=== PATIENT | male | born 1945 | race American Indian/Alaskan Native ===

== ENCOUNTER 2017-08-01 15:45 | Emergency (ER) | payer MEDICARE ==
--- NOTE | 2017-08-01 16:29 | Emergency Department Report ---
ED General Adult HPI - General Chief complaint: Urogenital-Male Stated complaint: CANT PEE Time Seen by Provider: 08/01/17 16:14 Source: patient Mode of arrival: Ambulatory Limitations: No Limitations - History of Present Illness Initial comments: Patient is a 72-year-old male past medical history of benign prostate hyperplasia who presents with inability to urinate. Patient states that symptoms have been going on for last 3 days. Nothing makes it better or worse. Patient states that he has had this problem before in the past. Patient states that he has mild pain in his belly 4 out 10. Patient denies any nausea or vomiting. - Related Data Home Medications Medication Instructions Recorded Confirmed Last Taken Lisinopril [Zestril TAB] 40 mg PO QDAY 11/17/15 11/17/15 Unknown Previous Rx's Medication Instructions Recorded Last Taken Type Famotidine [Pepcid] 20 mg PO BID #14 tablet 11/18/15 Unknown Rx oxyCODONE /ACETAMINOPHEN [Percocet 1 tab PO Q6H PRN #20 tablet 11/18/15 Unknown Rx 5/325 mg] Allergies Allergy/AdvReac Type Severity Reaction Status Date / Time No Known Allergies Allergy Verified 08/01/17 15:49 ED Review of Systems ROS: Stated complaint: CANT PEE Other details as noted in HPI Constitutional: denies: chills, fever Eyes: denies: eye pain, eye discharge, vision change ENT: denies: ear pain, throat pain Respiratory: denies: cough, shortness of breath, wheezing Cardiovascular: denies: chest pain, palpitations Endocrine: no symptoms reported Gastrointestinal: denies: abdominal pain, nausea, diarrhea Genitourinary: as per HPI. denies: urgency, dysuria Musculoskeletal: denies: back pain, joint swelling, arthralgia Skin: denies: rash, lesions Neurological: denies: headache, weakness, paresthesias Psychiatric: denies: anxiety, depression Hematological/Lymphatic: denies: easy bleeding, easy bruising ED Past Medical Hx - Past Medical History Hx Hypertension: Yes Hx Diabetes: Yes Hx Renal Disease: Yes - Social History Smoking Status: Current Every Day Smoker Substance Use Type: Alcohol - Medications Home Medications: Home Medications Medication Instructions Recorded Confirmed Last Taken Type Lisinopril [Zestril TAB] 40 mg PO QDAY 11/16/11/17/15 Unknown History Famotidine [Pepcid] 20 mg PO BID #14 tablet 11/18/15 Unknown Rx oxyCODONE /ACETAMINOPHEN [Percocet 1 tab PO Q6H PRN #20 tablet 11/18/15 Unknown Rx 5/325 mg] ED Physical Exam - General Limitations: No Limitations General appearance: alert, in no apparent distress - Head Head exam: Present: atraumatic, normocephalic - Eye Eye exam: Present: normal appearance - ENT ENT exam: Present: mucous membranes moist - Neck Neck exam: Present: normal inspection - Respiratory Respiratory exam: Present: normal lung sounds bilaterally. Absent: respiratory distress - Cardiovascular Cardiovascular Exam: Present: regular rate, normal rhythm. Absent: systolic murmur, diastolic murmur, rubs, gallop - GI/Abdominal GI/Abdominal exam: Present: distended, normal bowel sounds, other (distended bladder ) - Rectal Rectal exam: Present: deferred - Extremities Exam Extremities exam: Present: normal inspection - Back Exam Back exam: Present: normal inspection - Neurological Exam Neurological exam: Present: alert, oriented X3 - Psychiatric Psychiatric exam: Present: normal affect, normal mood - Skin Skin exam: Present: warm, dry, intact, normal color. Absent: rash ED Course Vital Signs 08/01/17 15:49 Temperature 98.2 F Pulse Rate 103 H Respiratory 24 Rate Blood Pressure 144/82 O2 Sat by Pulse 100 Oximetry ED Medical Decision Making - Lab Data Result diagrams: 08/01/17 16:29 08/01/17 16:29 Lab Results 08/01/17 08/01/17 Range/Units 16:29 16:29 WBC 11.7 H (4.5-11.0) K/mm3 RBC 4.96 (3.65-5.03) M/mm3 Hgb 15.0 (11.8-15.2) gm/dl Hct 44.0 (35.5-45.6) % MCV 89 (84-94) fl MCH 30 (28-32) pg MCHC 34 (32-34) % RDW 13.4 (13.2-15.2) % Plt Count 286 (140-440) K/mm3 Lymph % (Auto) 9.2 L (13.4-35.0) % [place] % (Auto) 7.2 (0.0-7.3) % Eos % (Auto) 1.1 (0.0-4.3) % Baso % (Auto) 0.7 (0.0-1.8) % Lymph # 1.1 L (1.2-5.4) K/mm3 [place] # 0.8 (0.0-0.8) K/mm3 Eos # 0.1 (0.0-0.4) K/mm3 Baso # 0.1 (0.0-0.1) K/mm3 Seg Neutrophils % 81.8 H (40.0-70.0) % Seg Neutrophils # 9.6 H (1.8-7.7) K/mm3 Sodium 131 L (137-145) mmol/L Potassium 4.2 (3.6-5.0) mmol/L Chloride 93.7 L (98-107) mmol/L Carbon Dioxide 24 (22-30) mmol/L Anion Gap 18 mmol/L BUN 17 (9-20) mg/dL Creatinine 1.5 (0.8-1.5) mg/dL Estimated GFR 56 ml/min BUN/Creatinine Ratio 11 % Glucose 137 H (75-100) mg/dL Calcium 9.8 (8.4-10.2) mg/dL - Medical Decision Making Cdx: Urinary obstruction 2/2 BPH ddx: Acute kidney failure, Constipation, Bladder Calculi I will get cbc, bmp boyer catheter. I was able to get 1300 mls of urine after boyer was placed. Blood work is unremarkable I will send patient home with boyer leg bag and f/u with Urology. Discussed plan with patient and patient agrees with plan. Additional verbal discharge instructions were given. Critical care attestation.: If time is entered above; I have spent that time in minutes in the direct care of this critically ill patient, excluding procedure time. ED Disposition Clinical Impression: Bladder distension, Urinary retention due to benign prostatic hyperplasia Disposition: DC- TO HOME OR SELFCARE Is pt being admited?: No Does the pt Need Aspirin: No Condition: Stable Instructions: Urinary Retention in Men (ED) Referrals: FELICIA REYES MD [Staff Physician] - 3-5 Days
[2017-08-01 16:47] LABS: Basophils # (Auto) 0.1 K/mm3 (0.0-0.1); Basophils % (Auto) 0.7 % (0.0-1.8); Eosinophils # (Auto) 0.1 K/mm3 (0.0-0.4); Eosinophils % (Auto) 1.1 % (0.0-4.3); Lymphocytes # (Auto) 1.1 K/mm3 (1.2-5.4); Lymphocytes % (Auto) 9.2 % (13.4-35.0); Mean Corpuscular HGB Conc 34 % (32-34); Mean Corpuscular Hemoglobin 30 pg (28-32); Mean Corpuscular Volume 89 fl (84-94); Monocytes # (Auto) 0.8 K/mm3 (0.0-0.8); Monocytes % (Auto) 7.2 % (0.0-7.3); Platelet Count 286 K/mm3 (140-440); Red Blood Count 4.96 M/mm3 (3.65-5.03); Red Cell Distribution Width 13.4 % (13.2-15.2)
[2017-08-01 16:53] LABS: Calcium 9.8 mg/dL (8.4-10.2)
[2017-08-01 19:27] VITALS: BP 167/84
== END 2017-08-01 19:40 | disposition home or self-care (01) ==
LOC: ED 15:45
DX: N40.1 Benign prostatic hyperplasia with lower urinary tract symptoms (principal); R33.8 Other retention of urine; N32.89 Other specified disorders of bladder; I10 Essential (primary) hypertension; E11.9 Type 2 diabetes mellitus without complications; F17.200 Nicotine dependence, unspecified, uncomplicated
CPT/HCPCS: 36415; 51702; 80048; 85025

== ENCOUNTER 2017-08-06 14:08 | Emergency (ER) | payer MEDICARE ==
[2017-08-06 15:53] LABS: Basophils # (Auto) 0.1 K/mm3 (0.0-0.1); Eosinophils # (Auto) 0.2 K/mm3 (0.0-0.4); Eosinophils % (Auto) 2.7 % (0.0-4.3); Hematocrit 45.2 % (35.5-45.6); Hemoglobin 14.7 gm/dl (11.8-15.2); Lymphocytes % (Auto) 26.8 % (13.4-35.0); Mean Corpuscular HGB Conc 33 % (32-34); Mean Corpuscular Hemoglobin 30 pg (28-32); Mean Corpuscular Volume 92 fl (84-94); Monocytes # (Auto) 0.4 K/mm3 (0.0-0.8); Platelet Count 317 K/mm3 (140-440); Red Blood Count 4.95 M/mm3 (3.65-5.03); Red Cell Distribution Width 13.5 % (13.2-15.2)
[2017-08-06] MEDS ORDERED: NORCO 5/325 PO ONE (15:53)
[2017-08-06] MEDS ORDERED: BACTRIM DS PO ONE (15:54)
[2017-08-06] MEDS ORDERED: KEFLEX PO ONE (15:54)
--- NOTE | 2017-08-06 15:57 | Emergency Department Report ---
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 Patient states that he is not circumcised. Denies nausea vomiting fever or chills. Patient states that his [place] bag is draining and was last changed 3 days ago. He states he has a urology appointment tomorrow. Patient is awake alert and oriented 3 MD Complaint: other (penile pain) - Related Data Home Medications Medication Instructions Recorded Confirmed Last Taken Lisinopril [Zestril TAB] 40 mg PO QDAY 11/17/15 11/17/15 Unknown Previous Rx's Medication Instructions Recorded Last Taken Type Famotidine [Pepcid] 20 mg PO BID #14 tablet 11/18/15 Unknown Rx oxyCODONE /ACETAMINOPHEN [Percocet 1 tab PO Q6H PRN #20 tablet 11/18/15 Unknown Rx 5/325 mg] Cephalexin [Keflex] 500 mg PO Q12HR #14 cap 08/06/17 Unknown Rx HYDROcodone/APAP 5-325 [[place] 1 each PO Q6HR PRN #12 tablet 08/06/17 Unknown Rx 5/325] Sulfamethoxazole/Trimethoprim 1 each PO BID #14 tablet 08/06/17 Unknown Rx [Bactrim DS TAB] Allergies Allergy/AdvReac Type Severity Reaction Status Date / Time No Known Allergies Allergy Verified 08/01/17 15:49 ED Review of Systems ROS: Stated complaint: URINARY PROBLEMS Other details as noted in HPI Constitutional: denies: chills, fever Eyes: denies: eye pain, eye discharge, vision change ENT: denies: ear pain, throat pain Respiratory: denies: cough, shortness of breath, wheezing Cardiovascular: denies: chest pain, palpitations Endocrine: no symptoms reported Gastrointestinal: denies: abdominal pain, nausea, diarrhea Genitourinary: as per HPI (indwellign catheter, penile swelling). denies: dysuria Musculoskeletal: denies: back pain, joint swelling, arthralgia Skin: denies: rash, lesions Neurological: denies: headache, weakness, paresthesias Psychiatric: denies: anxiety, depression Hematological/Lymphatic: denies: easy bleeding, easy bruising ED Past Medical Hx - Past Medical History Hx Hypertension: Yes Hx Diabetes: Yes Hx Renal Disease: Yes - Social History Smoking Status: Never Smoker Substance Use Type: None - Medications Home Medications: Home Medications Medication Instructions Recorded Confirmed Last Taken Type Lisinopril [Zestril TAB] 40 mg PO QDAY 11/17/15 11/17/15 Unknown History Famotidine [Pepcid] 20 mg PO BID #14 tablet 11/18/15 Unknown Rx oxyCODONE /ACETAMINOPHEN [Percocet 1 tab PO Q6H PRN #20 tablet 11/18/15 Unknown Rx 5/325 mg] Cephalexin [Keflex] 500 mg PO Q12HR #14 cap 08/06/17 Unknown Rx HYDROcodone/APAP 5-325 [[place] 1 each PO Q6HR PRN #12 tablet 08/06/17 Unknown Rx 5/325] Sulfamethoxazole/Trimethoprim 1 each PO BID #14 tablet 08/06/17 Unknown Rx [Bactrim DS TAB] ED Physical Exam - General Limitations: No Limitations General appearance: alert, in no apparent distress - Head Head exam: Present: atraumatic, normocephalic - Eye Eye exam: Present: normal appearance - ENT ENT exam: Present: mucous membranes moist - Neck Neck exam: Present: normal inspection - Respiratory Respiratory exam: Present: normal lung sounds bilaterally. Absent: respiratory distress - Cardiovascular Cardiovascular Exam: Present: regular rate, normal rhythm. Absent: systolic murmur, diastolic murmur, rubs, gallop - GI/Abdominal GI/Abdominal exam: Present: soft, normal bowel sounds - Rectal Rectal exam: Present: deferred - Expanded Exam Expanded Male exam: Present: paraphimosis (penile shaft swelling, NON circumferential as pt Dr. Mascorro who also examnied pt) - Extremities Exam Extremities exam: Present: normal inspection - Back Exam Back exam: Present: normal inspection - Neurological Exam Neurological exam: Present: alert, oriented X3 - Psychiatric Psychiatric exam: Present: normal affect, normal mood - Skin Skin exam: Present: warm, dry, intact, normal color. Absent: rash ED Course Vital Signs 08/06/17 14:15 Temperature 98.7 F Pulse Rate 93 H Respiratory 18 Rate Blood Pressure 152/76 O2 Sat by Pulse 98 Oximetry ED Medical Decision Making - Lab Data Result diagrams: 08/06/17 15:36 08/06/17 15:36 - Medical Decision Making A/P: Penile shaft cellulitis 1-as per Dr. Mascorro thoroughly examined the patient this is not paraphimosis and not a urologic emergency. Swelling is non-circumferential and distal penile shaft has good capillary refill as per Dr. Mascorro 2-patient has follow-up with a urologist tomorrow I advised him to discuss this with his urologist 3-Bactrim and Keflex twice a day for 7 days to cover for penile cellulitis. I advised patient to return to the ED for fever chills nausea vomiting or worsening cellulitis 4- Critical care attestation.: If time is entered above; I have spent that time in minutes in the direct care of this critically ill patient, excluding procedure time. ED Disposition Clinical Impression: Cellulitis of shaft of penis Disposition: DC- TO HOME OR SELFCARE Is pt being admited?: No Does the pt Need Aspirin: No Condition: Stable Instructions: Cellulitis (ED) Prescriptions: Cephalexin [Keflex] 500 mg PO Q12HR #14 cap HYDROcodone/APAP 5-325 [[place] 5/325] 1 each PO Q6HR PRN #12 tablet PRN Reason: Pain Sulfamethoxazole/Trimethoprim [Bactrim DS TAB] 1 each PO BID #14 tablet Referrals: TEA CONRADYANITHA [Provider Group] - 3-5 Days Time of Disposition: 17:44
--- NOTE | 2017-08-06 16:06 | Emergency Department Report ---
Chief Complaint: Urogenital-Male Stated Complaint: URINARY PROBLEMS Time Seen by Provider: 08/06/17 15:30 - HPI History of Present Illness: The patient is a 72-year-old male who presents for evaluation of penile shaft swelling. The patient reports nausea and swelling since yesterday, unilateral, constant, associated with swelling and moderate to severe throbbing pain. He shares that [place] catheter was placed last week for treatment of urinary retention. The patient denies open wound to the penis, testicular swelling or pain, drainage or discharge from the penis, or malfunctioning [place] catheter. - Exam Vital Signs: Vital Signs 08/06/17 14:15 Temperature 98.7 F Pulse Rate 93 H Respiratory 18 Rate Blood Pressure 152/76 O2 Sat by Pulse 98 Oximetry MSE screening note: Focused history and physical exam performed. Due to findings the following was ordered: ED Medical Decision Making - Lab Data Result diagrams: 08/06/17 15:36 ED Disposition for MSE Condition: Stable
[2017-08-06 16:09] LABS: Alanine Aminotransferase 46 units/L (7-56); Albumin 3.7 g/dL (3.9-5); BUN/Creatinine Ratio 10; Blood Urea Nitrogen 12 mg/dL (9-20); Calcium 9.1 mg/dL (8.4-10.2); Hemolysis Index 11
[2017-08-06 17:47] LABS: Bacteria,Urine 1+ /HPF (Negative); Bilirubin,Urine NEG (Negative); Blood,Urine LG (Negative); Color,Urine Yellow (Yellow); Mucus,Urine FEW /HPF; Urobilinogen,Urine < 2.0 mg/dL (<2.0)
[2017-08-06 18:01] VITALS: BP 152/87
== END 2017-08-06 19:12 | disposition home or self-care (01) ==
LOC: ED 14:08
DX: N48.22 Cellulitis of corpus cavernosum and penis (principal); I10 Essential (primary) hypertension; E11.9 Type 2 diabetes mellitus without complications
CPT/HCPCS: 36415; 80053; 81001; 85025

== ENCOUNTER 2018-07-09 09:51 | Outpatient (CLI) | payer MEDICARE ==
--- NOTE | 2018-07-09 23:27 | Magnetic Resonance Report ---
FINAL REPORT PROCEDURE: MR LUMBAR SPINE WO CON TECHNIQUE: Magnetic resonance imaging of the lumbar spine was performed using standard pulse [employer] es without contrast material. CPT 58590 HISTORY: PAINinpatient COMPARISON: No prior studies are available for comparison. FINDINGS: For the purposes of this examination the inferior-most well developed disc has been labeled as L5-S1. Vertebral alignment and height are within normal limits with normal bone marrow signal. Conus medulla ris is normal in location and appearance. Pre and paravertebral soft tissues are within normal limits . 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 L1-2: No significant abnormality . L2-3: No significant abnormality . L3-4: There is mild degree left neural foraminal stenosis secondary to mild degree left lateral disc protrusion.. L4-5: Mild degree disc bulge is identified without significant spinal canal compromise. There is mode rate degree bilateral facet and ligamentous hypertrophy resulting in minimal degree bilateral neural foraminal stenosis. L5-S1: [id number] degree disc bulge is noted eccentric to the right resulting in mild degree ri ght lateral recess and right neural foraminal stenosis. There is also moderate degree left facet arth ropathy. Other: None . IMPRESSION: Multilevel lumbar spondylosis as described above.
== END 2018-07-09 09:52 | disposition home or self-care (01) ==
LOC: MRI 09:51
PROVIDERS: ATTEND Physical Medicine & Rehabilitation Pain Medicine
DX: M47.816 Spondylosis without myelopathy or radiculopathy, lumbar region (principal); M51.26 Other intervertebral disc displacement, lumbar region; M51.27 Other intervertebral disc displacement, lumbosacral region; I10 Essential (primary) hypertension
CPT/HCPCS: 72148

== ENCOUNTER 2020-10-19 15:10 | Emergency (ER) | payer MEDICARE ==
--- NOTE | 2020-10-19 17:34 | Event Note ---
ED Screening Note Date of service: 10/19/20 Time: 17:33 ED Screening Note: This is a 75-year-old male with a history of diabetes who presents to ED complaining of abdominal and chest pain x4 days. Patient states he worsened this morning so he presented here. Denies nausea vomiting but admits diarrhea. This initial assessment/diagnostic orders/clinical plan/treatment(s) is/are subject to change based on patients health status, clinical progression and re- assessment by fellow clinical providers in the ED. Further treatment and workup at subsequent clinical providers discretion. Patient/guardian urged not to elope from the ED as their condition may be serious if not clinically assessed and managed. Initial orders include: labs, ekg, ua
[2020-10-19 18:05] LABS: Basophils # (Auto) 0.1 K/mm3 (0.0-0.1); Eosinophils % (Auto) 0.5 % (0.0-4.3); Hematocrit 46.5 % (35.5-45.6); Hemoglobin 15.8 gm/dl (11.8-15.2); Lymphocytes # (Auto) 1.1 K/mm3 (1.2-5.4); Lymphocytes % (Auto) 15.8 % (13.4-35.0); Mean Corpuscular HGB Conc 34 % (32-34); Mean Corpuscular Volume 90 fl (84-94); Monocytes # (Auto) 0.3 K/mm3 (0.0-0.8); Monocytes % (Auto) 3.7 % (0.0-7.3); Platelet Count 291 K/mm3 (140-440); Red Blood Count 5.19 M/mm3 (3.65-5.03); Red Cell Distribution Width 13.9 % (13.2-15.2)
[2020-10-19 18:44] LABS: BUN/Creatinine Ratio 9; Blood Urea Nitrogen 10 mg/dL (9-20); Calcium 9.8 mg/dL (8.4-10.2)
[2020-10-19 18:45] LABS: Alanine Aminotransferase 10 units/L (7-56); Albumin 4.6 g/dL (3.9-5); Hemolysis Index 10
--- NOTE | 2020-10-19 18:47 | Cat Scan Report ---
CT ABDOMEN AND PELVIS WITHOUT CONTRAST HISTORY: MAIN. COMPARISON: None. TECHNIQUE: CT images of the abdomen and pelvis were obtained without administration of intravenous co ntrast. All CT scans at this location are performed using CT dose reduction for ALARA by means of au tomated exposure control. FINDINGS: Lungs/bones: Lung bases are clear Abdomen/pelvis: Within limits of a noncontrast examination the liver, spleen, adrenal glands and urbano creas appear normal. Hypertrophy and hypodense cyst is seen in bilateral kidneys no obstructing stone is identified. There is no bowel obstruction. Urinary bladder is mildly distended. No ureteral stone is seen. Atherosclerotic changes seen throughout the aorta. Prostate is slightly enlarged. Degenerat mary changes seen throughout spine. IMPRESSION: 1. No renal or ureteral stones. Hypoechoic hyperdense cyst in bilateral kidneys. 2. No CT evidence for appendicitis. Examination is limited without IV and oral contrast. No free flui d is identified. No bowel obstruction. Signer Name: Foreign Carlson MD Signed: 10/19/2020 6:43 PM Workstation Name: [id number]
[2020-10-19] MEDS ORDERED: MORPHINE 4 MG/1 ML INJ IV ONE (21:44)
[2020-10-19 22:03] LABS: Bilirubin,Urine NEG (Negative); Blood,Urine NEG (Negative); Color,Urine Straw (Yellow); Protein,Urine <15 mg/dL mg/dL (Negative); Urobilinogen,Urine < 2.0 mg/dL (<2.0)
--- NOTE | 2020-10-19 22:27 | Emergency Department Report ---
ED General Adult HPI - General Chief complaint: Abdominal Pain Stated complaint: ABDOMINAL PAIN/CONSTIPATION Time Seen by Provider: 10/19/20 21:02 Source: patient, EMS Mode of arrival: Wheelchair Limitations: Physical Limitation - History of Present Illness Initial comments: Marshal Saxena is a 75-year-old male who presents with lower abdominal pain patie nt states that he has been taking oxycodone for his back and he has been straining to have a bowel movement. Patient states that his abdominal pain is a 6 out of 10 he states that he has been straining to have bowel movements and that his last bowel movement has been in 3 days. Patient denies any nausea vomiting or diarrhea. He states his pain is moderate no fevers or chills. Severity scale (0 -10): 8 - Related Data Home Medications Medication Instructions Recorded Confirmed Last Taken lisinopriL [Zestril TAB] 40 mg PO QDAY 11/17/15 11/17/15 Unknown Previous Rx's Medication Instructions Recorded Last Taken Type Famotidine [Pepcid] 20 mg PO BID #14 tablet 11/18/15 Unknown Rx oxyCODONE /ACETAMINOPHEN [Percocet 1 tab PO Q6H PRN #20 tablet 11/18/15 Unknown Rx 5/325 mg] HYDROcodone/APAP 5-325 [[place] 1 each PO Q6HR PRN #12 tablet 08/06/17 Unknown Rx 5/325] Sulfamethoxazole/Trimethoprim 1 each PO BID #14 tablet 08/06/17 Unknown Rx [Bactrim DS TAB] cephALEXin [Keflex] 500 mg PO Q12HR #14 cap 08/06/17 Unknown Rx Magnesium Citrate [Citroma] 296 ml PO ONCE #1 solution 10/19/20 Unknown Rx Allergies Allergy/AdvReac Type Severity Reaction Status Date / Time No Known Allergies Allergy Verified 08/01/17 15:49 ED Review of Systems ROS: Stated complaint: ABDOMINAL PAIN/CONSTIPATION Other details as noted in HPI Constitutional: denies: chills, fever Eyes: denies: eye pain, eye discharge, vision change ENT: denies: ear pain, throat pain Respiratory: denies: cough, shortness of breath, wheezing Cardiovascular: denies: chest pain, palpitations Endocrine: no symptoms reported Gastrointestinal: abdominal pain, constipation. denies: nausea, diarrhea Genitourinary: denies: urgency, dysuria Musculoskeletal: denies: back pain, joint swelling, arthralgia Skin: denies: rash, lesions Neurological: denies: headache, weakness, paresthesias Psychiatric: denies: anxiety, depression Hematological/Lymphatic: denies: easy bleeding, easy bruising ED Past Medical Hx - Past Medical History Previous Medical History?: Yes Hx Hypertension: Yes Hx Diabetes: Yes Hx Renal Disease: Yes - Social History Smoking Status: Never Smoker Substance Use Type: None - Medications Home Medications: Home Medications Medication Instructions Recorded Confirmed Last Taken Type lisinopriL [Zestril TAB] 40 mg PO QDAY 11/17/15 11/17/15 Unknown History Famotidine [Pepcid] 20 mg PO BID #14 tablet 11/18/15 Unknown Rx oxyCODONE /ACETAMINOPHEN [Percocet 1 tab PO Q6H PRN #20 tablet 11/18/15 Unknown Rx 5/325 mg] HYDROcodone/APAP 5-325 [[place] 1 each PO Q6HR PRN #12 tablet 08/06/17 Unknown Rx 5/325] Sulfamethoxazole/Trimethoprim 1 each PO BID #14 tablet 08/06/17 Unknown Rx [Bactrim DS TAB] cephALEXin [Keflex] 500 mg PO Q12HR #14 cap 08/06/17 Unknown Rx Magnesium Citrate [Citroma] 296 ml PO ONCE #1 solution 10/19/20 Unknown Rx ED Physical Exam - General Limitations: Physical Limitation General appearance: alert, in no apparent distress - Head Head exam: Present: atraumatic, normocephalic - Eye Eye exam: Present: normal appearance - ENT ENT exam: Present: mucous membranes moist - Neck Neck exam: Present: normal inspection - Respiratory Respiratory exam: Present: normal lung sounds bilaterally. Absent: respiratory distress - Cardiovascular Cardiovascular Exam: Present: regular rate, normal rhythm. Absent: systolic murmur, diastolic murmur, rubs, gallop - GI/Abdominal GI/Abdominal exam: Present: soft, normal bowel sounds - Rectal Rectal exam: Present: deferred - Extremities Exam Extremities exam: Present: normal inspection - Back Exam Back exam: Present: normal inspection - Neurological Exam Neurological exam: Present: alert, oriented X3 - Psychiatric Psychiatric exam: Present: normal affect, normal mood - Skin Skin exam: Present: warm, dry, intact, normal color. Absent: rash ED Course Vital Signs 10/19/20 10/19/20 16:34 21:07 Temperature 99.5 F Pulse Rate 118 H 90 Respiratory 18 20 Rate Blood Pressure 114/60 152/73 [Right] O2 Sat by Pulse 99 100 Oximetry ED Medical Decision Making - Lab Data Result diagrams: 10/19/20 17:52 10/19/20 17:52 Lab Results 10/19/20 10/19/20 10/19/20 Range/Units 17:52 17:52 21:53 WBC 7.1 (4.5-11.0) K/mm3 RBC 5.19 H (3.65-5.03) M/mm3 Hgb 15.8 H (11.8-15.2) gm/dl Hct 46.5 H (35.5-45.6) % MCV 90 (84-94) fl MCH 30 (28-32) pg MCHC 34 (32-34) % RDW 13.9 (13.2-15.2) % Plt Count 291 (140-440) K/mm3 Lymph % (Auto) 15.8 (13.4-35.0) % [place] % (Auto) 3.7 (0.0-7.3) % Eos % (Auto) 0.5 (0.0-4.3) % Baso % (Auto) 1.0 (0.0-1.8) % Lymph # (Auto) 1.1 L (1.2-5.4) K/mm3 [place] # (Auto) 0.3 (0.0-0.8) K/mm3 Eos # (Auto) 0.0 (0.0-0.4) K/mm3 Baso # (Auto) 0.1 (0.0-0.1) K/mm3 Seg Neutrophils % 79.0 H (40.0-70.0) % Seg Neutrophils # 5.6 (1.8-7.7) K/mm3 Sodium 136 L (137-145) mmol/L Potassium 4.5 (3.6-5.0) mmol/L Chloride 98.9 (98-107) mmol/L Carbon Dioxide 20 L (22-30) mmol/L Anion Gap 22 mmol/L BUN 10 (9-20) mg/dL Creatinine 1.1 (0.8-1.3) mg/dL Estimated GFR > 60 ml/min BUN/Creatinine Ratio 9 % Glucose 162 H (75-100) mg/dL Calcium 9.8 (8.4-10.2) mg/dL Total Bilirubin 0.50 (0.1-1.2) mg/dL AST 12 (5-40) units/L ALT 10 (7-56) units/L Alkaline Phosphatase 156 H (35-129) units/L Total Protein 7.6 (6.3-8.2) g/dL Albumin 4.6 (3.9-5) g/dL Albumin/Globulin Ratio 1.5 % Urine Color Straw (Yellow) Urine Turbidity Clear (Clear) Urine pH 6.0 (5.0-7.0) Ur Specific [place] 1.007 (1.003-1.030) Urine Protein <15 mg/dl (Negative) mg/dL Urine Glucose (UA) >=500 (Negative) mg/dL Urine Ketones Neg (Negative) mg/dL Urine Blood Neg (Negative) Urine Nitrite Neg (Negative) Urine Bilirubin Neg (Negative) Urine Urobilinogen < 2.0 (<2.0) mg/dL Ur Leukocyte Esterase Neg (Negative) Urine WBC (Auto) 1.0 (0.0-6.0) /HPF Urine RBC (Auto) 1.0 (0.0-6.0) /HPF U Epithel Cells (Auto) < 1.0 (0-13.0) /HPF - Radiology Data Radiology results: report reviewed, image reviewed CT scan: Shows no obstruction no appendicitis no ureteral stone. - Medical Decision Making Cdx: Constipation ddx: SBO, LBO I will get ct scan, blood work iv pain medication and will re-eval. Patient CT scan is unremarkable I will discharge patient home with magnesium citrate discussed with patient plan with patient patient agrees with plan Critical care attestation.: If time is entered above; I have spent that time in minutes in the direct care of this critically ill patient, excluding procedure time. ED Disposition Clinical Impression: Abdominal pain Qualifiers: Abdominal location: generalized Qualified Code(s): R10.84 - Generalized abdominal pain Constipation Qualifiers: Constipation type: unspecified constipation type Qualified Code(s): K59.00 - Constipation, unspecified Disposition: - TO HOME OR SELFCARE Is pt being admited?: No Does the pt Need Aspirin: No Condition: Stable Instructions: Constipation, Adult, Abdominal Pain, Adult, [id number] Prescriptions: Magnesium Citrate [Citroma] 296 ml PO ONCE #1 solution
[2020-10-19] MEDS ORDERED: MAGNESIUM CITRATE 300 ML ORAL LIQD PO ONE (22:28)
[2020-10-19 23:24] VITALS: BP 141/95
--- NOTE | 2020-10-20 14:44 | Electrocardiograph Report ---
[facility] Test Date: 2020-10-19 Test Time: 16:40:13 Pat Name: LAWRENCE MALDONADO III Department: Room: Gender: M Belt Maker: KENDY : 1945 Requested By: NAZ YOUNG Order Number: [id number] Reading MD: Edward Saravia Measurements Intervals [place] Rate: 117 P: 49 TX: 151 QRS: 31 QRSD: 83 T: 180 QT: 311 QTc: 435 Interpretive Statements Sinus tachycardia Abnormal T, consider ischemia, lateral leads No previous ECG available for comparison Electronically Signed On 10-20-2020 14:43:56 EDT by Edward Saravia
== END 2020-10-19 23:25 | disposition home or self-care (01) ==
LOC: ED 15:10
DX: K59.00 Constipation, unspecified (principal); R10.30 Lower abdominal pain, unspecified; I10 Essential (primary) hypertension; E11.9 Type 2 diabetes mellitus without complications; Z79.899 Other long term (current) drug therapy
CPT/HCPCS: 36415; 74176; 80053; 81001; 85025; 93005; 96374; 99284; J2270

== ENCOUNTER 2021-02-22 08:14 | Day surgery (SDC) | payer MEDICARE ==
[2021-02-22] MEDS ORDERED: ASPIRIN EC 325 MG TAB PO ONE (08:36)
[2021-02-22] MEDS ORDERED: SODIUM CHLORIDE 0.9% 500 ML 500 ML IV SCH (09:00)
[2021-02-22 09:09] LABS: Basophils # (Auto) 0.1 K/mm3 (0.0-0.1); Basophils % (Auto) 1.3 % (0.0-1.8); Eosinophils # (Auto) 0.2 K/mm3 (0.0-0.4); Eosinophils % (Auto) 4.2 % (0.0-4.3); Hematocrit 46.6 % (35.5-45.6); Hemoglobin 16.1 gm/dl (11.8-15.2); Lymphocytes # (Auto) 1.1 K/mm3 (1.2-5.4); Lymphocytes % (Auto) 20.9 % (13.4-35.0); Mean Corpuscular HGB Conc 34 % (32-34); Mean Corpuscular Volume 91 fl (84-94); Monocytes # (Auto) 0.3 K/mm3 (0.0-0.8); Monocytes % (Auto) 5.6 % (0.0-7.3); Platelet Count 256 K/mm3 (140-440); Red Blood Count 5.14 M/mm3 (3.65-5.03); Red Cell Distribution Width 13.8 % (13.2-15.2)
[2021-02-22 09:20] LABS: INR 0.83 (0.87-1.13)
[2021-02-22 09:26] LABS: BUN/Creatinine Ratio 18; Blood Urea Nitrogen 14 mg/dL (9-20); Calcium 9.8 mg/dL (8.4-10.2); Hemolysis Index 100
[2021-02-22] MEDS ORDERED: HEPARIN 10,000 UNITS/10 ML VIAL ONE (10:19)
[2021-02-22] MEDS ORDERED: HEPARIN/NS 5000 UNIT/500ML 1,000 ML IR ONE (10:19)
[2021-02-22] MEDS ORDERED: VERAPAMIL 5 MG/2 ML INJ ONE (10:19)
[2021-02-22] MEDS ORDERED: NITROGLYCERIN SYRINGE 0 ML ONE (10:19)
[2021-02-22] MEDS: MIDAZOLAM 2 MG/2 ML INJ ONE ×2 (10:36→10:44)
[2021-02-22] MEDS: fentaNYL 100 MCG/2 ML INJ ONE ×2 (10:36→10:44)
[2021-02-22] MEDS: LIDOCAINE (2%) 20 MG/1 ML VIAL 20 ML MDV INFILTRATI ONE ×2 (10:37→10:45)
--- NOTE | 2021-02-22 11:38 | Discharge Summary ---
Short Stay Discharge Plan Activity: advance as tolerated Weight Bearing Status: Partial Weight Bearing Diet: low fat, low cholesterol, low salt, diabetic Wound: keep clean and dry Special Instructions: no heavy lifting (3 days) Follow up with: JHOAN JIMENEZ III, APRN-MARY [Primary Care Provider] - 7 Days TERENCE TUCKER MD [Staff Physician] - 7 Days
--- NOTE | 2021-02-22 13:48 | Cardiac Catherization Report ---
DATE OF SERVICE: 02/22/2021 REASON FOR PROCEDURE: The patient is a 76-year-old man with shortness of breath, who was found on echocardiogram with a mild transaortic gradient, and referred for right and left heart catheterization for further evaluation of persistent shortness of breath and mild aortic stenosis. PROCEDURES: 1. Right heart catheterization. 2. Left heart catheterization. 3. Selective left and right coronary angiography. 4. Left ventricular angiography. 5. Sedation time start 10:44, end 11:01. DESCRIPTION OF PROCEDURE: The patient was prepped and draped in a sterile fashion after informed consent. The right femoral artery and vein were both entered using Seldinger technique. A 6-[place] sheath was inserted in the artery and an 8-[place] sheath in the vein. [place] catheter was then advanced to the pulmonary artery position. Cardiac output was measured using thermodilution method. A #4 right Sharona catheter was then inserted and advanced into the left ventricle. Simultaneous right and left heart filling pressures were measured. The [place] catheter was then withdrawn and right heart pressures were measured on pullback. Left ventricular angiography was then done using hand injection with the right Sharona catheter. Following this, the catheter was withdrawn across the aortic valve and transaortic pressure gradient was assessed. Finally, selective left and right coronary angiography was performed using the #4 right Sharona and #4 left Sharona. The catheters were then removed, sheath removed and hemostasis achieved over the arterial site using an Angio-Seal device, and over the venous site using manual compression. The patient was returned to the postprocedure unit in stable condition. There were no complications. HEMODYNAMICS: Mean right atrial was 15. Right ventricular pressure was 45- 50/18. Pulmonary artery pressure was 35-40/20. The mean pulmonary artery wedge pressure was 20. Left ventricular end-diastolic pressure was 20. Ascending aortic pressure 163/71. There was no significant pressure gradient on pullback across the aortic valve. Cardiac output was 6.12 liters per minute. CORONARY ANGIOGRAPHY: Left main coronary artery was free of significant disease. Left anterior descending artery and its diagonal branches contained mild luminal irregularities. The circumflex artery and its obtuse marginal branches contained mild luminal irregularities. The right coronary artery was dominant and contained mild luminal irregularities. Left ventricular systolic function was normal with ejection fraction 55-60%. CONCLUSION: 1. Mild to moderate increase in right and left heart filling pressures. 2. Moderate pulmonary hypertension with pulmonary artery systolic pressure of 50 mmHg. 3. Mild trans-pulmonic valve gradient of uncertain significance. 4. No significant coronary disease as detailed above. 5. Normal LV systolic function, EF 55-60%. TID: [id number] RECEIPT: [id number] [facility]
[2021-02-22 14:40] VITALS: BP 164/84
--- NOTE | 2021-02-28 14:11 | Electrocardiograph Report ---
[facility] Test Date: 2021-02-22 Test Time: 09:32:22 Pat Name: LAWRENCE MALDONADO III Department: Room: Gender: M Systems Architect: TIANNA : 1945 Requested By: EDWARD TUCKER Order Number: [id number] Reading MD: Edward Tucker Measurements Intervals [place] Rate: 64 P: 48 IA: 162 QRS: 11 QRSD: 94 T: QT: 382 QTc: 394 Interpretive Statements Marked sinus arrhythmia Nonspecific T wave abnormality Compared to ECG 10/19/2020 16:40:13 Sinus arrhythmia has replaced sinus tachycardia Electronically Signed On 02-28-2021 14:10:33 EDT by Edward Tucker
== END 2021-02-22 15:20 | disposition home or self-care (01) ==
LOC: CATHLABREC 08:14
PROVIDERS: ATTEND Internal Medicine Cardiovascular Disease
DX: R94.30 Abnormal result of cardiovascular function study, unspecified (principal); R55 Syncope and collapse; I12.9 Hypertensive chronic kidney disease with stage 1 through stage 4 chronic kidney disease, or unspecified chronic kidney disease; N18.9 Chronic kidney disease, unspecified; E78.00 Pure hypercholesterolemia, unspecified; F17.210 Nicotine dependence, cigarettes, uncomplicated; Z79.899 Other long term (current) drug therapy; Z98.890 Other specified postprocedural states
CPT/HCPCS: 36415; 80048; 85025; 85610; 93005; 93460; 99156; C1760; C1894; J1644; J2250; J3010; J7040; Q9967

== ENCOUNTER 2021-10-04 15:41 | Emergency (ER) | payer MEDICARE ==
[2021-10-04 15:50] VITALS: BP 93/55
[2021-10-04] MEDS ORDERED: SODIUM CHLORIDE 0.9% 1000 ML 1,000 ML IV ONE (16:12)
--- NOTE | 2021-10-04 16:12 | Emergency Department Report ---
ED General Adult HPI - General Chief complaint: Weakness Stated complaint: WEAKNESS Time Seen by Provider: 10/04/21 15:58 Source: patient, EMS Mode of arrival: Stretcher Limitations: No Limitations - History of Present Illness Initial comments: The patient presents to the emergency department via EMS for chief complaint of generalized weakness. Per EMS the patient walked to the store and upon returning to his apartment was noticed by bystanders that he was very diaphoretic and upon EMS arrival the patient's blood pressure was 180/102. Patient denies chest pain or shortness of breath. Patient states he has a history of hypertension diabetes. Patient states that after walking to the store and back to his apartment and he just felt weak. He states now he feels back to his normal self. -: Sudden Severity scale (0 -10): 0 Consistency: now resolved Improves with: none Worsens with: none Associated Symptoms: denies other symptoms Treatments Prior to Arrival: none - Related Data Home Medications Medication Instructions Recorded Confirmed Last Taken lisinopriL [Zestril TAB] 20 mg PO QDAY 11/17/15 02/22/21 02/21/21 Aspirin [Vazalore] 81 mg PO DAILY 02/22/21 02/22/21 02/21/21 AtorvaSTATin [Lipitor] 40 mg PO QHS 02/22/21 02/22/21 02/21/21 Empagliflozin/Metformin HCl 1 each PO DAILY 02/22/21 02/22/21 02/20/21 [Synjardy 5-1,000 mg Tablet] Gabapentin [Neurontin] 800 mg PO DAILY 02/22/21 02/22/21 02/21/21 Insulin Aspart (Nf) [NovoLOG 16 unit SQ TID 02/22/21 02/22/21 02/21/21 Flexpen] Insulin Detemir (Nf) [Levemir 10 unit SQ DAILY 02/22/21 02/22/21 02/21/21 Flextouch (Nf)] Tamsulosin [Flomax] 0.4 mg PO QDAY 02/22/21 02/22/21 02/21/21 amLODIPine 10 mg PO DAILY 02/22/21 02/22/21 02/21/21 Previous Rx's Medication Instructions Recorded Last Taken Type oxyCODONE /ACETAMINOPHEN [Percocet 1 tab PO Q6H PRN #20 tablet 11/18/15 02/21/21 Rx 5/325 mg] Allergies Allergy/AdvReac Type Severity Reaction Status Date / Time No Known Allergies Allergy Verified 10/04/21 15:50 ED Review of Systems ROS: Stated complaint: WEAKNESS Other details as noted in HPI Comment: All other systems reviewed and negative Constitutional: denies: chills, fever Eyes: denies: eye pain, eye discharge, vision change ENT: denies: ear pain, throat pain Respiratory: denies: cough, shortness of breath, wheezing Cardiovascular: denies: chest pain, palpitations Endocrine: no symptoms reported Gastrointestinal: denies: abdominal pain, nausea, diarrhea Genitourinary: denies: urgency, dysuria Musculoskeletal: denies: back pain, joint swelling, arthralgia Skin: denies: rash, lesions Neurological: denies: headache, weakness, paresthesias Psychiatric: denies: anxiety, depression Hematological/Lymphatic: denies: easy bleeding, easy bruising ED Past Medical Hx - Past Medical History Hx Hypertension: Yes Hx Diabetes: Yes Hx Renal Disease: Yes - Social History Smoking Status: Current Every Day Smoker - Medications Home Medications: Home Medications Medication Instructions Recorded Confirmed Last Taken Type lisinopriL [Zestril TAB] 20 mg PO QDAY 11/17/15 02/22/21 02/21/21 History oxyCODONE /ACETAMINOPHEN [Percocet 1 tab PO Q6H PRN #20 tablet 11/18/15 02/22/21 02/21/21 Rx 5/325 mg] Aspirin [Vazalore] 81 mg PO DAILY 02/22/21 02/22/21 02/21/21 History AtorvaSTATin [Lipitor] 40 mg PO QHS 02/22/21 02/22/21 02/21/21 History Empagliflozin/Metformin HCl 1 each PO DAILY 02/22/21 02/22/21 02/20/21 History [Synjardy 5-1,000 mg Tablet] Gabapentin [Neurontin] 800 mg PO DAILY 02/22/21 02/22/21 02/21/21 History Insulin Aspart (Nf) [NovoLOG 16 unit SQ TID 02/22/21 02/22/21 02/21/21 History Flexpen] Insulin Detemir (Nf) [Levemir 10 unit SQ DAILY 02/22/21 02/22/21 02/21/21 History Flextouch (Nf)] Tamsulosin [Flomax] 0.4 mg PO QDAY 02/22/21 02/22/21 02/21/21 History amLODIPine 10 mg PO DAILY 02/22/21 02/22/21 02/21/21 History ED Physical Exam - General Limitations: No Limitations General appearance: alert, in no apparent distress - Head Head exam: Present: atraumatic, normocephalic - Eye Eye exam: Present: normal appearance - ENT ENT exam: Present: mucous membranes moist - Neck Neck exam: Present: normal inspection - Respiratory Respiratory exam: Present: normal lung sounds bilaterally. Absent: respiratory distress - Cardiovascular Cardiovascular Exam: Present: regular rate, normal rhythm. Absent: systolic murmur, diastolic murmur, rubs, gallop - GI/Abdominal GI/Abdominal exam: Present: soft, normal bowel sounds. Absent: distended, tenderness - Rectal Rectal exam: Present: deferred - Extremities Exam Extremities exam: Present: normal inspection - Back Exam Back exam: Present: normal inspection - Neurological Exam Neurological exam: Present: alert, oriented X3, CN II-XII intact. Absent: motor sensory deficit - Psychiatric Psychiatric exam: Present: normal affect, normal mood - Skin Skin exam: Present: warm, dry, intact, normal color. Absent: rash ED Course Vital Signs 10/04/21 15:47 Temperature 98.3 F Pulse Rate 96 H Blood Pressure 93/55 [Left] O2 Sat by Pulse 95 Oximetry ED Medical Decision Making - Lab Data Result diagrams: 10/04/21 16:30 10/04/21 16:30 Lab Results 10/04/21 10/04/21 Range/Units 16:30 16:30 WBC 6.0 (4.5-11.0) K/mm3 RBC 4.70 (3.65-5.03) M/mm3 Hgb 14.3 (11.8-15.2) gm/dl Hct 43.5 (35.5-45.6) % MCV 93 (84-94) fl MCH 30 (28-32) pg MCHC 33 (32-34) % RDW 13.8 (13.2-15.2) % Plt Count 253 (140-440) K/mm3 Lymph % (Auto) 15.8 (13.4-35.0) % [place] % (Auto) 6.6 (0.0-7.3) % Eos % (Auto) 1.7 (0.0-4.3) % Baso % (Auto) 1.2 (0.0-1.8) % Lymph # (Auto) 0.9 L (1.2-5.4) K/mm3 [place] # (Auto) 0.4 (0.0-0.8) K/mm3 Eos # (Auto) 0.1 (0.0-0.4) K/mm3 Baso # (Auto) 0.1 (0.0-0.1) K/mm3 Seg Neutrophils % 74.7 H (40.0-70.0) % Seg Neutrophils # 4.5 (1.8-7.7) K/mm3 Sodium 139 (137-145) mmol/L Potassium 4.8 (3.6-5.0) mmol/L Chloride 99.8 (98-107) mmol/L Carbon Dioxide 24 (22-30) mmol/L Anion Gap 20 mmol/L BUN 17 (9-20) mg/dL Creatinine 1.4 H (0.8-1.3) mg/dL Estimated GFR 60 ml/min BUN/Creatinine Ratio 12 % Glucose 231 H (75-100) mg/dL Calcium 9.3 (8.4-10.2) mg/dL Total Bilirubin 0.30 (0.1-1.2) mg/dL AST 13 (5-40) units/L ALT 15 (7-56) units/L Alkaline Phosphatase 131 H (35-129) units/L Troponin T < 0.010 (0.00-0.029) ng/mL Total Protein 6.5 (6.3-8.2) g/dL Albumin 4.4 (3.9-5) g/dL Albumin/Globulin Ratio 2.1 % - Radiology Data Radiology results: report reviewed - Medical Decision Making As discussed you should follow-up with her primary care physician for further evaluation of your hyperglycemia. In all likelihood with a random glucose level greater than 200 there is concern for diabetes mellitus. Please continue to increase fluid intake as discussed Critical care attestation.: If time is entered above; I have spent that time in minutes in the direct care of this critically ill patient, excluding procedure time. ED Disposition Clinical Impression: Dehydration, Hyperglycemia Disposition: HOME / SELF CARE / HOMELESS Is pt being admited?: No Does the pt Need Aspirin: No Condition: Stable Instructions: Hyperglycemia, Dehydration, Adult, [id number] Additional Instructions: Return if worse Referrals: MILES CLARKE MD [Staff Physician] - 3-5 Days [facility] [Provider Group] - 3-5 Days Time of Disposition: 18:43
--- NOTE | 2021-10-04 16:33 | XRay Report ---
CHEST 1 VIEW INDICATION / CLINICAL INFORMATION: weakness. COMPARISON: None available. FINDINGS: SUPPORT DEVICES: None. HEART / MEDIASTINUM: No significant abnormality. LUNGS / PLEURA: Minimal nonconsolidating stranding opacities are present within the lower chest and c ardiophrenic angles. Lungs otherwise are clear. BONES: No significant osseous abnormality. ADDITIONAL FINDINGS: No significant additional findings. IMPRESSION: 1. Probable bibasilar atelectasis. No active process demonstrated. Signer Name: Stanislaw Quijano II, MD Signed: 10/04/2021 4:28 PM Workstation Name: [id number]
[2021-10-04 17:02] LABS: Basophils # (Auto) 0.1 K/mm3 (0.0-0.1); Basophils % (Auto) 1.2 % (0.0-1.8); Eosinophils # (Auto) 0.1 K/mm3 (0.0-0.4); Eosinophils % (Auto) 1.7 % (0.0-4.3); Hematocrit 43.5 % (35.5-45.6); Hemoglobin 14.3 gm/dl (11.8-15.2); Lymphocytes # (Auto) 0.9 K/mm3 (1.2-5.4); Lymphocytes % (Auto) 15.8 % (13.4-35.0); Mean Corpuscular HGB Conc 33 % (32-34); Mean Corpuscular Volume 93 fl (84-94); Monocytes # (Auto) 0.4 K/mm3 (0.0-0.8); Monocytes % (Auto) 6.6 % (0.0-7.3); Platelet Count 253 K/mm3 (140-440); Red Cell Distribution Width 13.8 % (13.2-15.2)
[2021-10-04 17:09] LABS: Alanine Aminotransferase 15 units/L (7-56); Albumin 4.4 g/dL (3.9-5); BUN/Creatinine Ratio 12; Blood Urea Nitrogen 17 mg/dL (9-20); Calcium 9.3 mg/dL (8.4-10.2); Hemolysis Index 7
== END 2021-10-04 19:30 | disposition home or self-care (01) ==
LOC: ED 15:41
DX: E11.65 Type 2 diabetes mellitus with hyperglycemia (principal); E86.0 Dehydration; F17.200 Nicotine dependence, unspecified, uncomplicated; I10 Essential (primary) hypertension; E11.9 Type 2 diabetes mellitus without complications
CPT/HCPCS: 36415; 71045; 80053; 84484; 85025; 96360; 99284; J7030